=== PATIENT | male | born 1990 | race Caucasian/White ===

== ENCOUNTER 2024-11-28 22:52 | Emergency (ER) | payer BC, OTHER ==
[2024-11-28] MEDS ORDERED: Lidocaine 1% PF 2 ML SDV INJECT ONE (23:59)
== END 2024-11-29 00:55 | disposition home or self-care (01) ==
LOC: JD.ED 22:52
DX: S01.312A Laceration without foreign body of left ear, initial encounter (principal); W19.XXXA Unspecified fall, initial encounter; Y92.019 Unspecified place in single-family (private) house as the place of occurrence of the external cause
CPT/HCPCS: 12013; 99282; J2003; 99283; J3490